=== PATIENT | female | born 1985 | race Caucasian/White ===

== ENCOUNTER → 2019-10-24 11:51 | Outpatient (CLI) | payer BC, SELFPAY ==
--- NOTE | ~2019-10-24 | US_ITS ---
EXAMINATION: US OB transvaginal DATE: 10/24/2019 12:10 INDICATION: Spotting during first trimester of . TECHNIQUE: Real-time pelvic ultrasound was performed. The interpreting radiologist was not present fo r the study. COMPARISON: None. FINDINGS: The uterus measures 7.7 x 4.3 x 5.3. There is an intrauterine gestational sac with double decidua sig n and subtle internal echogenicity likely representing either the yolk sac or pole which is too small to measure. The mean sac diameter measures 3 mm which bob too small to determine gestational age. The right ovary measures 3.3 x 2.1 x 3.4 cm and contains a 1.3 cm hypoechoic likely corpus luteum cys t. The left ovary measures 2.2 x 1.0 x 3.1 cm there are few tiny anechoic follicles. There is small a mount of anechoic likely physiologic free fluid in the cul-de-sac. IMPRESSION: 1. 3 mm gestational sac which remains too small to assess for gestational age or viability. Co rrelate with serial beta-hCG levels and consider repeat ultrasound as clinically indicated. Reviewed, dictated and finalized at location A. IMPRESSION: 1. 3 mm gestational sac which remains too small to assess for gestational age or viability. Correlate with serial beta-hCG levels and consider repeat u ltrasound as clinically indicated.
== END ==
PROVIDERS: Visit Provider Obstetrics & Gynecology Gynecology
DX: O26.851 Spotting complicating pregnancy, first trimester (principal)
CPT/HCPCS: 76817

== ENCOUNTER → 2019-12-12 15:49 | Outpatient (CLI) | payer BC, SELFPAY ==
--- NOTE | ~2019-12-12 | US_ITS ---
EXAMINATION: US OB transvaginal DATE: 12/12/2019 16:10 INDICATION: History of spontaneous TECHNIQUE: Real-time transabdominal and transvaginal obstetric ultrasound. FINDINGS: No prior studies for comparison. The uterus measures 8 x 4.8 x 5.5 cm. There is an intrauterine gestational sac, with pole ident ified. The crown rump length measures 0.9 cm, which correlates with a estimated gestational age of 6 weeks 6 days. heart tones are identified measuring 124 BPM. Right ovary not visualized. Left ovary is normal. No free fluid in the pelvis. IMPRESSION: 1. SL IUP with an EGA of 6 weeks, 6 days (EDC by current ultrasound of 07/31/2020). Reviewed, dictated and finalized at location A. IMPRESSION: 1. SL IUP with an EGA of 6 weeks, 6 days (EDC by current ultrasound of ).
== END ==
PROVIDERS: Visit Provider Obstetrics & Gynecology Gynecology
DX: O26.21 Pregnancy care for patient with recurrent pregnancy loss, first trimester (principal); Z3A.01 Less than 8 weeks gestation of pregnancy
CPT/HCPCS: 76817

== ENCOUNTER → 2020-03-05 15:46 | Outpatient (CLI) | payer BC, SELFPAY ==
--- NOTE | ~2020-03-05 | US_ITS ---
EXAMINATION: US OB >= 14 weeks Fetus EXAM DATE: 03/05/2020 16:38 INDICATION: anatomy survey. 2nd trimester. TECHNIQUE: Pelvic obstetrical transabdominal sonogram was performed by a technologist. There are mu ltiple grayscale and Doppler images available for interpretation. Comparison is made to prior examina tion from 12/12/2019. FINDINGS: There is a single fetus identified in variable presentation with a heart rate of 152 beats per minute. The placenta is located in the posterior position. There is no sonographic evidence of r etroplacental hemorrhage identified. There is subjectively expected amount of amniotic fluid. BIOMETRIC DATA: Biparietal diameter (BPD): 4.3 cmcm ----------------> 19 weeks 0 days. Head circumference (HC): 16.5 cm cm ----------------> 19 weeks 1 day. Abdominal circumference (AC): 14.0 cm cm ----------> 19 weeks 3 days. Femur length (FL): 2.9 cm cm --------------------------> 19 weeks 0 days. These measurements are concordant. HC/AC ratio is 1.18 (The 5th -- 95th percentile range is 1.09-1.26. Estimated weight is 280 g +/- 42 g. This is the 67th percentile when the currently reported cl inical gestation age 18 weeks 6 days, clinical estimated date of delivery ([facility]) 07/31/2020 is used . estimated gestational age based on measurements from this exam is 19 weeks 1 day, with an est imated date of delivery ([facility]) 07/29/2020. ANATOMIC SURVEY: The following anatomy is identified and is sonographically normal in appearance: Cerebral ventricles Cerebellum Cisterna magna Nuchal fold CTL-spine Four-chamber heart Diaphragm Stomach Kidneys Bladder Three-vessel cord Cord insertion IMPRESSION: 1. Single fetus in variable presentation with heart rate 152 beats per minute. 2. Estimated weight of 280 grams, 67th percentile using the currently reported clinical gestat ion age of 18 weeks 6 days, SON(OPE) 07/31. 3. Normal anatomic survey. Reviewed, dictated and finalized at location G. NEL DEVELOPMENT MANAGER IMPRESSION: 1. Single fetus in variable presentation with heart rate 152 beats per minute. 2. Estimated weight of 280 grams, 67th percentile using the currently re ported clinical gestation age of 18 weeks 6 days, SON(OPE) 07/31. 3. Normal anatomic survey.
== END ==
PROVIDERS: Visit Provider Obstetrics & Gynecology Gynecology
DX: Z34.92 Encounter for supervision of normal pregnancy, unspecified, second trimester (principal); Z3A.19 19 weeks gestation of pregnancy
CPT/HCPCS: 76805

== ENCOUNTER 2020-07-15 16:16 | Outpatient (CLI) | payer BC, SELFPAY ==
[2020-07-15 16:59] VITALS: BP 124/85; PULSE 92
[2020-07-15 17:00] VITALS: BP 122/89; PULSE 98
[2020-07-15 17:12] LABS: Basophils Percent Auto 0.2 % (0.2-1.2); Eosinophils Absolute Auto 0.1 K/mm3 (0-0.3); Eosinophils Percent Auto 0.5 % (0-4.4); Hematocrit 36.7 % (37.0-47.0); Hemoglobin 12.3 g/dL (12.0-15.0); Immature Granulocyte Absolute 0.11 K/mm3 (0.00-0.031); Immature Granulocyte Percent A 1.1 % (0-0.5); Lymphocytes Absolute Auto 1.51 K/mm3 (0.9-3.2); Lymphocytes Percent Auto 15.6 % (18.3-44.2); Mean Corpuscular HGB Conc 33.5 g/dl (32-36); Mean Corpuscular Hemoglobin 30.1 pg (26-34); Mean Corpuscular Volume 89.7 fl (80-100); Mean Platelet Volume 10.2 fl (7.4-10.4); Monocytes Absolute Auto 0.7 K/mm3 (0.1-0.6); Monocytes Percent Auto 7.1 % (2.6-8.5); Neutrophils Absolute Auto 7.3 K/mm3 (1.3-6.7); Neutrophils Percent Auto 75.5 % (45.5-73.1); Platelet Count Result 165 k/mm3 (150-375); Red Blood Count 4.09 M/mm3 (4.2-5.4); Red Cell Distribution Width 17.1 % (11.5-14.5); White Blood Count 9.7 K/mm3 (4.5-10.0)
[2020-07-15 17:15] VITALS: BP 117/79; PULSE 94
[2020-07-15 17:16] LABS: Add Urine Microscopic? YES; Appearance Urine Clear (Clear); Bacteria Urine Trace /hpf; Bilirubin Urine Negative (Negative); Blood Urine Negative (Negative); Color Urine Straw (Yellow); Glucose Urine UA Negative (Negative); Ketones Urine 1+ mg/dL (Negative); Leukocyte Esterase Ur Negative LEU/UL (NEGATIVE); Mucus Urine Rare /lpf; Nitrate Urine Negative (Negative); Protein Urine Negative (Negative); RBC Urine 0-2 /hpf (0-2); Specific Grav Ur 1.008 (1.001-1.035); Squamous Epithelial Cell Urine Rare /hpf (Few); Urobilinogen Urine Negative mg/dL (<2.0); WBC Urine 0-3 /hpf (0-3)
[2020-07-15 17:30] VITALS: BP 119/75; PULSE 89
[2020-07-15 17:32] LABS: Alanine Aminotransferase 11 U/L (4-35); Albumin Level 3.7 g/dL (3.5-5.1); Alkaline Phosphatase 160 U/L (38-126); Anion Gap 8 mmol/L (8-16); Aspartate Amino Transferase 34 U/L (14-36); Bilirubin,Total 0.6 mg/dL (0.2-1.3); Blood Urea Nitrogen 6 mg/dL (7-17); Calcium 8.8 mg/dL (8.4-10.2); Carbon Dioxide 18 mmol/L (22-30); Chloride 108 mmol/L (98-107); Estimated Glomerular Filt Rate > 60; Glucose 80 mg/dL (65-105); Potassium 3.8 mmol/L (3.4-5.0); Sodium 134 mmol/L (137-145); Uric Acid 3.9 mg/dL (2.5-7.5)
--- NOTE | 2020-07-15 17:58 | PC.NURSE ---
174- Spoke with Dr. Hassan, labs and BPs reviewed. Orders for SVE, if unchanged, discharge to home.
[2020-07-15 18:01] LABS: Creatinine Urine 31.7 mg/dL; Total Protein Urine Random 11 mg/dL; Ur Ttl Prot Creatinine Ratio 0.35 mg/mg (0-0.20)
== END 2020-07-15 17:58 | disposition home or self-care (01) ==
LOC: ANHOBOP 16:20 → ANHOBPP 16:20
PROVIDERS: Visit Provider Obstetrics & Gynecology Gynecology
DX: O13.9 Gestational [pregnancy-induced] hypertension without significant proteinuria, unspecified trimester (principal); Z3A.00 Weeks of gestation of pregnancy not specified
CPT/HCPCS: 36415; 59025; 80053; 81001; 82570; 84156; 84550; 85025; 87086; 87088; 99199

== ENCOUNTER 2020-07-23 13:39 | Outpatient (CLI) | payer BC, SELFPAY ==
[2020-07-23 14:04] LABS: Hemoglobin 12.6 g/dL (12.0-15.0); Mean Corpuscular HGB Conc 33.2 g/dl (32-36); Mean Corpuscular Hemoglobin 30.1 pg (26-34); Mean Corpuscular Volume 90.7 fl (80-100); Mean Platelet Volume 10.2 fl (7.4-10.4); Platelet Count Result 167 k/mm3 (150-375); Red Blood Count 4.19 M/mm3 (4.2-5.4); Red Cell Distribution Width 16.7 % (11.5-14.5); White Blood Count 8.6 K/mm3 (4.5-10.0)
[2020-07-24 07:01] LABS: Rapid Plasma Reagin Non-Reactive (NonReactive)
== END 2020-07-23 13:40 | disposition home or self-care (01) ==
PROVIDERS: Visit Provider Obstetrics & Gynecology Gynecology
DX: Z01.818 Encounter for other preprocedural examination (principal)
CPT/HCPCS: 36415; 85027; 86592; 86850; 86900; 86901

== ENCOUNTER 2020-07-24 05:27 | Inpatient (IN) | payer BC, SELFPAY ==
--- NOTE | 2020-07-07 16:06 | PC.NURSE ---
VERIFIED WITH OR SCHEDULE AND PATIENT--C/S ON 07/24/20 AT 0730 PATIENT GIVEN REQUISITION FOR PRE-OP LAB DRAW ON 07/23/20
[2020-07-24] VITALS (51 sets, daily range): BP systolic 87–135; BP diastolic 52–81; PULSE 55–129; RESP 12–16; TEMP 36.3–36.9; O2SAT 94–100; BMI 29.8
--- NOTE | 2020-07-24 05:27 | LDADM ---
This patient, Jenna Brown, was admitted to Labor/Delivery/Recovery 120 on 07/24/20 at 05:27. Plans for labor, pain management and were discussed with patient. Patient/family oriented to hospital policies and general routines including ID bracelet, bed and alarms, visiting hours, pain management, procedures, bathroom and other care routines, personal items, smoking policy, room service/diet and guest tray routines, infant security routines, and visiting hours. Patient/Family are encouraged to report perceived risks to care and to ask questions if they do not understand what they are told or what they should do. See OBIX for further documentation.
[2020-07-24] MEDS: LACTATED RINGERS 1,000 ML 125 ML IV CONT ×2 (05:57→07:13)
--- NOTE | 2020-07-24 07:06 | WPDANESEPPF ---
Anes - Initial Pre Proc Eval Procedure: Operation Date: 07/24/20 07:30 Proposed Procedures p Pimary Section - Enrique Hassan MD Date/Time: 07/24/20 07:06 Surgeon: Enrique Hassan MD Pre Op Diagnosis: C/S Patient Data Age: 34 Gender: F Height: 5 ft 2 in Weight: 74.1 kg Last Vital Signs Pulse 82 07/24/20 06:15 BP 120/80 07/24/20 06:15 Allergies Allergy/AdvReac Type Severity Reaction Status Date / Time No Known Allergies Allergy Verified 07/07/20 15:45 Home Medications Medication Instructions Recorded Confirmed Type aspirin [Low-Dose Aspirin] 81 mg PO DAILY 07/07/20 07/24/20 History docusate sodium [Colace] 100 mg PO DAILY 07/07/20 07/15/20 History ergocalciferol (vitamin D2) 1,250 mcg PO WEEKLY 07/07/20 07/15/20 History [Vitamin D2] ferrous sulfate 325 mg PO DAILY 07/07/20 07/15/20 History prenat.vits,jatin,nbc-nqhn-emnfj 1 tablet PO DAILY 07/07/20 07/15/20 History [ #2] Patient hx anesthesia problems: none Family hx anesthesia problems: none PMFSH Family History Family History Father Renal cancer Mother Hyperthyroidism Grandparent Uterus cancer Other Patient's father is Social History Social History Smoking status: Never smoker Substance use: never Spiritual care concerns: No Anes - Eval Final PreProcedure Day of Procedure 07/24/20 07:06 Patient weight: overweight Heart: regular rate and rhythm Lungs: clear to auscultation Airway: Mallampati scale class II Neurological: alert and oriented Last oral intake: >/= 8 hours ASA classification: II Emergent: no Anesthetic plan: proceed Anesthesia type and monitoring: regional spinal and standard monitoring Informed Consent: The patient's anesthetic plan and its attendant risks and benefits were discussed with the patient/family/POA. Questions were solicited and answers provided to the satisfaction of the patient/family/POA.
--- NOTE | 2020-07-24 07:32 | PM.IMHP ---
H&P: HPI History of Present Illness Date/Time: 07/24/20 07:32 34 y/o at 39 weeks scheduled for a csection secondary to poor ob history Chief Complaint: desires csection PMFSH Past Medical History Medical History (Updated 07/24/20 @ 07:34 by Enrique Hassan MD) with poor obstetric history Family History Family History Father Renal cancer Mother Hyperthyroidism Grandparent Uterus cancer Other Patient's father is Social History Social History Smoking status: Never smoker Substance use: never Spiritual care concerns: No Meds Home Medications and Allergies Home Medications Medication Instructions Recorded Confirmed Type aspirin [Low-Dose Aspirin] 81 mg PO DAILY 07/07/20 07/24/20 History docusate sodium [Colace] 100 mg PO DAILY 07/07/20 07/15/20 History ergocalciferol (vitamin D2) 1,250 mcg PO WEEKLY 07/07/20 07/15/20 History [Vitamin D2] ferrous sulfate 325 mg PO DAILY 07/07/20 07/15/20 History prenat.vits,jatin,lbn-jhiy-gofzk 1 tablet PO DAILY 07/07/20 07/15/20 History [ #2] Allergies Allergy/AdvReac Type Severity Reaction Status Date / Time No Known Allergies Allergy Verified 07/07/20 15:45 Vital Signs Vital Signs - 24 hr 07/24/20 05:51 07/24/20 06:01 07/24/20 06:15 Pulse Rate 89 84 82 Blood Pressure 119/81 110/70 120/80 Exam Const: General: cooperative and alert GI: Other: soft gravid nontender. Assessment and Plan Assessment and plan (1) with poor obstetric history: Code(s): O09.299 - Supervision of with other poor reproductive or obstetric history, unspecified trimester Status: Acute Assessment and Plan: scheduled for a primary csection. Risk and benefits reviewed in detail. Patient agrees to proceed.
[2020-07-24] MEDS: ceFAZolin 2 GM/D5W 50 ML 2 GM/50 ML BAG IVPB (07:36)
--- NOTE | 2020-07-24 07:36 | WPDHPUPDATE1 ---
History and Physical Update Update Date/Time: 07/24/20 07:36 History and Physical has been reviewed, including an updated exam of the patient. There are NO changes in the patient's condition. Risks, benefits, and alternatives have been discussed and questions answered. Patient agrees to proceed with procedure.
--- NOTE | 2020-07-24 08:30 | P.OP_ITS ---
Procedure Note - Detailed Date of procedure: 07/24/20 Pre-op diagnosis: C/S poor obstetric history Post-op diagnosis: same Procedure performed: ltcs Description of procedure: Patient was taken to the operating room with IV running. She was prepped and draped in a normal sterile fashion and placed in a supine position with a left tilt. A Pfannenstiel skin incision was made with a scalpel carried down to underlying layer of fascia. The fascia incision was then extended bilaterally with Sandoval scissors. Superior aspect of the incision was grasped Prince clamps elevated dissected off the rectus muscles. The infer ior aspect of the incision was grasped Prince clamps elevated dissected off the rectus muscles. The rectus muscles were in the midline the peritoneum was entered bluntly the bladder blade was inserted. A low transverse incision was made with a scalpel and extended bluntly. The head was delivered atraumatically the remainder of the fetus was delivered cord was clamped and cut. Handed off to the waiting nurse acquired blood was obtained for gases were obtained the placenta delivered spontaneously. The uterus was exteriorized and cleared of all clots and debris. Uterine incision was closed with 0 Monocryl in a running locked fashion a 2nd layer of the same suture was used to imbricate this incision. Hemostasis was noted. The uterus was returned to the abdomen the gutters were cleared of all clots and debris. Muscles were examined for hemostasis the fascia was closed with 0 Vicryl suture. The subcutaneous tissue was irrigated hemostasis assured through plain gut was used to close the subcutaneous tissue and a running stitch and the skin was closed with 4 Vicryl on a Chun needle. In a subcuticular stitch sponge lap needle counts were correct x2 patient did receive 2 g Ancef prior to skin incision. Anesthesia: spinal Surgeon: Enrique Hassan MD Estimated blood loss (mL): 400 Urine output (mL): 100 Drains: Yes Packing: No Pathology: none sent Complications: None Condition: stable Disposition: PACU Findings: male vertex HELEN 8lbs and 10 oz clear fluid
[2020-07-24] MEDS: ONDANSETRON INJ 4 MG/2 ML VIAL IV PUSH ×2 (08:56→19:27)
[2020-07-24] MEDS: OXYTOCIN 30 UNITS/NS 500 ML 30 UNITS/500 ML BAG 125 UNITS IV CONT (10:02)
--- NOTE | 2020-07-24 11:35 | PC.NURSE ---
Mother called out for assist with feeding. Consulted with patient, mother reports was awake and eagerly latched first feeding. Mother breastfed first child for 15 months without issues. Reviewed infant feeding cues, frequencies, duration of feedings, feeding elimination flow sheet, and signs of adequate intake. Demonstrated stimulation techniques to wake infant for feeding. Assisted with to breast. Reviewed positioning/alignment in cross cradle, holding breast in ?U? hold and guided asymmetrical latch on. able to latch correctly. Infant nursed eagerly, with steady draws and frequent swallowing noted. Reviewed signs of a correct latch, effective nursing and suck swallow ratio. was able to maintain latch without discomfort to mother. Nipple care reviewed of lanolin after feedings, warm compresses as needed. Instructed mother to call out for RN assistance if she is unable to latch for feeding or she has discomfort with nursing. Instructed feeding should be initiated three hours from start of last feeding or if feeding cues are noted before. Mother voiced understanding of information shared.
--- NOTE | 2020-07-24 11:44 | PC.NURSE ---
1042-Patient transferred to post room #290 via stretcher. Support person present. Oriented to unit, room, information board, rooming in, admission packet and security measures. Patient verbalizes understanding.
[2020-07-24] MEDS: KETOROLAC 30 MG/ML VIAL (*BKC) IV PUSH ×2 (12:34→19:27)
--- NOTE | 2020-07-24 13:12 | PC.NURSE ---
Called Anesthesia to request order for something for patient's itching. Benadryl order given by Eloisa for itching
[2020-07-24] MEDS: diphenhydrAMINE HCl INJ 50 MG/ML VIAL 12.5 MG IV PUSH (13:30)
[2020-07-24] MEDS: DEXTROSE 5%/0.45% SOD CHL 1,000 ML 125 ML (14:23)
[2020-07-24] MEDS: DOCUSATE SODIUM 100 MG CAPSULE PO (17:33)
[2020-07-24] MEDS: HYDROcodone/acetaminophen (*CRX) 5-325 MG TABLET 1 TAB PO (19:27)
[2020-07-25] VITALS: BP 112/72; PULSE 75; RESP 16; TEMP 36.2; O2SAT 98
[2020-07-25 04:00] VITALS: BP 107/71; PULSE 73; RESP 18; TEMP 36.3; O2SAT 99
[2020-07-25] MEDS: HYDROcodone/acetaminophen (*CRX) 5-325 MG TABLET 1 TAB PO ×3 (04:41→12:32)
[2020-07-25] MEDS: IBUPROFEN 600 MG TABLET PO ×3 (04:41→19:30)
[2020-07-25 05:46] LABS: Basophils Percent Auto 0.3 % (0.2-1.2); Eosinophils Absolute Auto 0.1 K/mm3 (0-0.3); Eosinophils Percent Auto 1.2 % (0-4.4); Hematocrit 32.4 % (37.0-47.0); Hemoglobin 10.9 g/dL (12.0-15.0); Immature Granulocyte Absolute 0.06 K/mm3 (0.00-0.031); Immature Granulocyte Percent A 0.7 % (0-0.5); Lymphocytes Absolute Auto 1.44 K/mm3 (0.9-3.2); Lymphocytes Percent Auto 15.9 % (18.3-44.2); Mean Corpuscular HGB Conc 33.6 g/dl (32-36); Mean Corpuscular Hemoglobin 29.9 pg (26-34); Mean Platelet Volume 10.3 fl (7.4-10.4); Monocytes Absolute Auto 0.5 K/mm3 (0.1-0.6); Neutrophils Absolute Auto 6.9 K/mm3 (1.3-6.7); Neutrophils Percent Auto 75.9 % (45.5-73.1); Platelet Count Result 143 k/mm3 (150-375); Red Blood Count 3.64 M/mm3 (4.2-5.4); Red Cell Distribution Width 16.6 % (11.5-14.5); White Blood Count 9.1 K/mm3 (4.5-10.0)
[2020-07-25 08:20] VITALS: BP 113/66; PULSE 83; RESP 16; TEMP 36.3; O2SAT 99
[2020-07-25] MEDS: MULTIVIT/MIN/PREN/FOL AC/IRON TABLET 1 TAB PO (08:28)
[2020-07-25] MEDS: SIMETHICONE 80 MG TAB.CHEW PO (08:29)
[2020-07-25] MEDS: DOCUSATE SODIUM 100 MG CAPSULE PO ×2 (08:29→17:40)
--- NOTE | 2020-07-25 10:45 | WPDANLDNPN2 ---
Anes-Prog Note L&D-Neuraxial Date/Time: 07/25/20 10:45 Neuraxial medications: intrathecal PF morphine Opiod-related complaints: none Patient feedback: Patient satisfied with post-operative pain management.
--- NOTE | 2020-07-25 10:45 | WPDANLDPN2 ---
Anes-Prog Note L&D Date/Time: 07/25/20 10:45 Comfortable throughout: section Neuraxial method: spinal Epidural/Spinal procedure site: clean & non-tender Neuro status: Neuro function grossly intact. Cardiovascular status: normal Respiratory status: normal Airway patency: baseline Mental status: baseline Post-Op hydration status: normal Vital Signs: Last Vital Signs Temp 36.3 C L 07/25/20 04:00 Pulse 73 07/25/20 04:00 Resp 18 07/25/20 04:00 BP 107/71 07/25/20 04:00 Pulse Ox 99 07/25/20 04:00 Pain score (VAS): 0 I/O: Intake & Output 07/24/20 07/25/20 07/25/20 23:59 07:59 15:59 Intake Total 100 Output Total 750 1800 Balance -650 -1800 Post-procedural complaints: none Patient feedback: Patient satisfied with anesthetic care.
--- NOTE | 2020-07-25 12:22 | P.PNOB_ITS ---
OB - PN: Subj Subjective Date/time seen: 07/25/20 12:22 doing well no complaints pain controlled OB - PN: Obj Data Labs CBC & Chem 7: 07/25/20 04:45 Labs: Laboratory Results - last 24 hr 07/25/20 04:45 WBC 9.1 RBC 3.64 L Hgb 10.9 L Hct 32.4 L MCV 89.0 MCH 29.9 MCHC 33.6 RDW 16.6 H Plt Count 143 L MPV 10.3 Immature Gran % (Auto) 0.7 H Neut % (Auto) 75.9 H Lymph % (Auto) 15.9 L [place] % (Auto) 6.0 Eos % (Auto) 1.2 Baso % (Auto) 0.3 Lymph # (Auto) 1.44 [place] # (Auto) 0.5 Eos # (Auto) 0.1 Baso # (Auto) 0.0 Abs Immat Gran (auto) 0.06 H Absolute Neuts (auto) 6.9 H Absolute Nucleated RBC 0.0 Nucleated RBC % 0.0 OB - PN A/P Assessment and Plan (1) with poor obstetric history: Code(s): O09.299 - Supervision of with other poor reproductive or obstetric history, unspecified trimester Status: Acute (2) Single delivery by : Code(s): O82 - Encounter for delivery without indication Status: Acute Assessment and Plan: continue with pp care Time Spent With Patient Time: Total time spent is greater than 50% in coordination of care (as documented) at patient's floor/unit and/or counseling patient: Exam GI: Other: ff below umbilicus incision c/d/i
[2020-07-25 19:50] VITALS: BP 112/72; PULSE 63; RESP 18; TEMP 36.2; O2SAT 98
[2020-07-26] MEDS: IBUPROFEN 600 MG TABLET PO ×2 (05:32→17:17)
[2020-07-26] MEDS: MULTIVIT/MIN/PREN/FOL AC/IRON TABLET 1 TAB PO (07:28)
[2020-07-26] MEDS: DOCUSATE SODIUM 100 MG CAPSULE PO ×2 (07:28→17:17)
[2020-07-26] MEDS: SIMETHICONE 80 MG TAB.CHEW PO (07:28)
[2020-07-26 07:50] VITALS: BP 113/79; PULSE 71; RESP 12; TEMP 36.6; O2SAT 98
--- NOTE | 2020-07-26 12:09 | PM.OBPNVD ---
OB - PN: Subj Subjective Date/time seen: 07/26/20 12:09 doing well no complaints OB - PN: Obj Data Labs CBC & Chem 7: 07/25/20 04:45 OB - PN A/P Assessment and Plan (1) Single delivery by : Code(s): O82 - Encounter for delivery without indication Status: Acute Assessment and Plan: continue with pp care. Time Spent With Patient Time: Total time spent is greater than 50% in coordination of care (as documented) at patient's floor/unit and/or counseling patient: Exam Narrative: Exam Narrative: inc c/d/i
[2020-07-26 19:50] VITALS: BP 106/68; PULSE 62; RESP 16; TEMP 36.7
[2020-07-27] MEDS: IBUPROFEN 600 MG TABLET PO ×2 (00:30→07:42)
--- NOTE | 2020-07-27 07:39 | PM.OBPNVD ---
OB - PN: Subj Subjective Date/time seen: 07/27/20 07:39 doing well ready for home OB - PN: Obj Data Labs CBC & Chem 7: 07/25/20 04:45 OB - PN A/P Assessment and Plan (1) Single delivery by : Code(s): O82 - Encounter for delivery without indication Status: Acute Assessment and Plan: will d/c home. f/u in [address] aponte. Time Spent With Patient Time: Total time spent is greater than 50% in coordination of care (as documented) at patient's floor/unit and/or counseling patient: Exam Narrative: Exam Narrative: ff below umbilicus
[2020-07-27] MEDS: MULTIVIT/MIN/PREN/FOL AC/IRON TABLET 1 TAB PO (07:43)
[2020-07-27] MEDS: SIMETHICONE 80 MG TAB.CHEW PO (07:43)
[2020-07-27] MEDS: DOCUSATE SODIUM 100 MG CAPSULE PO (07:43)
--- NOTE | 2020-07-27 08:00 | PC.NURSE ---
Observed mother is able to independently latch with appropriate positioning/alignment. She denies any nipple discomfort, is feeding as required and waking infant to feed if needed. has had at least 8 effective feedings in the past 24 hours, and is currently meeting outcomes for weight, output, jaundice and feeding frequencies. Mother states she feels confident to continue effective at home. Reviewed transition to breast milk, signs of adequate intake, and engorgement/relief. Instructed to call ICP if intake/output less than required. Reviewed regular medications mother is taking. Information provided per Magda. Reviewed community resources on the [facility] website and in the Mom/Baby guide. Information on outpatient services provided. Mother has no further questions at this time.
[2020-07-27 08:15] VITALS: BP 127/72; PULSE 63; RESP 18; TEMP 36.6
--- NOTE | 2020-07-27 10:45 | PC.NURSE ---
Patient viewed the discharge video Mother & Baby Care, The First Two Weeks . Patient was given the opportunity and encouraged to ask questions. Patient verbalized understanding of information shared and has been given the mother/baby guide for home reference.
[2020-07-29 08:54] VITALS: BP 124/75; PULSE 83; RESP 16; TEMP 36.5; O2SAT 100
--- NOTE | 2020-08-18 10:10 | PM.OBDSVD ---
DS: Admitting Diagnosis Admitting Diagnosis Admitting Diagnosis: induction of labor DS: Discharge Diagnosis Discharge Diagnosis (1) Single delivery by : Code(s): O82 - Encounter for delivery without indication Status: Acute (2) with poor obstetric history: Code(s): O09.299 - Supervision of with other poor reproductive or obstetric history, unspecified trimester Status: Acute OB - DS: Summary OB Procedures : Ultrasound OB Procedures Intrapartum: OB Procedures: : None Peripartum Data Procedures: Procedures Operation Date: 07/24/20 07:30 Actual Procedure Side Surgeon p Nallely Section Enrique Hassan MD Time Spent with Patient Time attestation: Total time spent providing and/or coordinating discharge services: Discharge Plan Discharge Attending physician on discharge: Enrique Hassan Consulting providers: Alex Ramirez ; Pavel Dunham Discharging Clinician: Enrique Hassan Patient Disposition: Home, Self-Care Activity: may shower and pelvic rest Diet: regular Discharge Instructions: Education: Mom and Baby Guide Given to: Mother Follow-Up: Call your delivering provider's office for an appointment to be seen in: 1 Week Mom and baby should come to the [facility] for the follow-up appointment. Appointment Date/Time: July 29, 2020 at 9:00 am What to expect at your follow-up visit: Physical Assessment Call [phone] if you are unable to keep your appointment time. BREAST CARE: * Wear a snug supportive bra. * For engorgement discomfort: Breast Feeding: * Apply warm moist washcloths * Express milk as needed to relieve engorgement * Wear loose clothing * For sore nipples: * Identify correct latch-on * Apply warm moist washcloths before and after nursing * Air dry nipples after nursing * May apply Lansinoh cream to nipples ABDOMINAL INCISION: * Allow incision to air dry * Do NOT use lotions for powders on your incision * When showering, allow soap and water to run over the incision, but do not wash incision PERINEAL CARE: * Until bleeding stops, use your aurelia bottle after urinating * Change your pad frequently throughout the day * No tub baths until seen by your physician - You may shower ACTIVITY: * Rest as much as possible. * Do not exercise or lift anything heavier than your baby (such as laundry or other children.) * Avoid stairs or driving as much as possible. * Do not put anything into the vagina. No douching, tampons, or sexual activity until seen by physician. NOTIFY PHYSICIAN IF YOU HAVE ANY QUESTIONS OR IF ANY OF THE FOLLOWING SYMPTOMS OCCUR: * If your incision becomes red, swollen, or more painful than what you have experienced in the hospital. * If your vaginal bleeding becomes foul smelling. * If your vaginal bleeding becomes more heavy than a period or if your bleeding changes from pink to bright red. However, you may pass an occasional walnut-sized clot once or twice for the first week . * If you experience a sharp, shooting pain in you calves. * If you discover a hard, reddened area on your breast or if you experience flu-like symptoms. DIET: * Eat regular, well-balanced meals. * Drink plenty of fluids daily. If , drink to thirst. Stand Alone Forms: General Discharge Information Follow-up/Referrals: Enrique Hassan MD [Physician] - Discharge Medications: New hydrocodone-acetaminophen 5-325 mg tablet 1 tablet PO Q4H PRN (Reason: pain) Qty: 30 RF: 0 Continued docusate sodium [Colace] 100 mg Capsule 100 mg PO DAILY RF: 0 ergocalciferol (vitamin D2) [Vitamin D2] 1,250 mcg (50,000 unit) Capsule 1,250 mcg PO WEEKLY RF: 0 ferrous sulfate 325 mg (65 mg iron) Tablet,Delayed Release (Dr/Ec) 325 mg PO DAILY RF:
== END 2020-07-27 11:11 | disposition home or self-care (01) | DRG 788 ==
LOC: ANHLDR 05:30 → ANHOB2 10:46
PROVIDERS: Admitting Provider Obstetrics & Gynecology; Visit Provider Obstetrics & Gynecology
PROC: 10D00Z1 Extraction of Products of Conception, Low, Open Approach (ICD-10-PCS; CPT 59514; principal; 2020-07-24 07:30)
DX: O34.211 Maternal care for low transverse scar from previous cesarean delivery (principal); O99.824 Streptococcus B carrier state complicating childbirth; Z3A.39 39 weeks gestation of pregnancy; Z37.0 Single live birth
CPT/HCPCS: 36415; 85025; A9270; J0690; J1200; J1885; J2274; J2370; J2405; J2590; J7120